=== PATIENT | male | born 1960 | race Caucasian/White ===

== ENCOUNTER 2019-09-05 13:11 | Emergency (ER) | payer SELFPAY ==
--- NOTE | 2019-09-05 13:45 | UC ---
Complaint Male HPI - HPI Summary HPI Summary: 58 year old male presents with complaint of urinary frequency and gross blood with right flank pain. Tried ibuprofen 800mg and acetaminophen 1000mg without improvement of pain. Denies fever/chills/nausea/vomiting. Has a kidney stone with similar symptoms six to seven months ago; three in the past year. Follows with Urology at [facility], Dr. Fernandez, and has a follow-up appointment in four days. - History of Current Complaint Stated Complaint: URINARY BACK PAIN Time Seen by Provider: 09/05/19 13:43 Hx Obtained From: Patient Timing: Constant Severity Currently: Severe Pain Intensity: 9 Pain Scale Used: 0-10 Numeric Character: Colicy Associated Signs And Symptoms: Positive: Back Pain, Hematuria. Negative: Fever , Dysuria, Nausea - Allergies/Home Medications Allergies/Adverse Reactions: Allergies Allergy/AdvReac Type Severity Reaction Status Date / Time No Known Allergies Allergy Verified 09/05/19 13:44 Home Medications: Home Medications Ibuprofen TAB* [Advil TAB*] 800 mg PO Q8H PRN 09/05/19 [History Confirmed ] PMH/Surg Hx/FS Hx/Imm Hx Previously Healthy: Yes - Surgical History Surgical History: None - Family History Known Family History: Positive: Non-Contributory - Social History Alcohol Use: Rare Substance Use Type: None Smoking Status (MU): Former Smoker Review of Systems All Other Systems Reviewed And Are Negative: Yes Constitutional: Negative: Fever, Chills, Fatigue Skin: Positive: Negative Eyes: Positive: Negative ENT: Positive: Negative Respiratory: Positive: Negative Cardiovascular: Positive: Negative Gastrointestinal: Positive: Abdominal Pain - right. Negative: Vomiting, Diarrhea, Nausea Genitourinary: Positive: Hematuria, Frequency, Other - Right flank pain Motor: Positive: Negative Neurovascular: Positive: Negative Musculoskeletal: Positive: Negative Neurological: Positive: Negative Psychological: Positive: Negative Is Patient Immunocompromised?: No Physical Exam Triage Information Reviewed: Yes Appearance: Well-Appearing Vital Signs Reviewed: Yes Eye Exam: Normal ENT Exam: Normal Neck: Positive: Supple, Nontender, No Lymphadenopathy Respiratory: Positive: Lungs clear, Normal breath sounds. Negative: Crackles, Rhonchi, Wheezing Cardiovascular: Positive: RRR, No Murmur Abdomen Description: Positive: CVA Tenderness (R). Negative: CVA Tenderness (L) , Distended, Guarding Musculoskeletal Exam: Normal Neurological Exam: Normal Psychological Exam: Normal Skin Exam: Normal Complaint Male Course/Dx - Course Course Of Treatment: Symptoms and U/A consistent with recurrent kidney stone. He is established with at [facility] and will call to see if a sooner appt in available ( has one scheduled in [address], declines as he has had numerous and told to avoid further radiation exposure unless absolutely necessary. [employer] Drug Utilization Report Search Terms: Oren Sepulveda, 1959earch Date: 09/05/2019 01:53:24 PM - Differential Dx/Diagnosis Differential Diagnosis/HQI/PQRI: Ureteral Calculi Provider Diagnosis: Hematuria, Nephrolithiasis Discharge ED - Sign-Out/Discharge Documenting (check all that apply): Patient Departure All imaging exams completed and their final reports reviewed: No Studies - Discharge Plan Condition: Stable Disposition: HOME Prescriptions: oxyCODONE/Acetamin 5/325 MG* [Percocet 5/325 TAB*] 1 - 2 tab PO Q6H PRN 5 Days # 30 tab MDD 8 TABS PRN Reason: Pain - Severe Patient Education Materials: Kidney Stones (ED) Referrals: Nae CHÁVEZ,Olive Gonzalez [Primary Care Provider] - Additional Instructions: Increase your water intake, follow with your Urologist (Dr. Fernandez) in the next 1-5 days. If you develop a fever or begin with persistent vomiting, go to the ED for further evaluation. - Billing Disposition and Condition Condition: STABLE Disposition: Home
== END 2019-09-05 14:22 | disposition home or self-care (01) ==
LOC: UCCORT 13:11
DX: N20.0 Calculus of kidney (principal); R31.9 Hematuria, unspecified; Z87.891 Personal history of nicotine dependence
CPT/HCPCS: 81003; 99202; G0463